=== PATIENT | female | born 1985 | race Caucasian/White ===

== ENCOUNTER 2016-10-24 21:31 | Emergency (ER) | payer SELFPAY ==
[~2016-10-24] VITALS: Ht 162.6 cm; Wt 66.2 kg
--- NOTE | ~2016-10-24 | CR63 ---
[facility]. [facility] A Service of [facility] & [facility] RADIOLOGY TEXT RESULTS PATIENT: CELENA CHAIREZ LOCATION: SED : 81 UNIT #: [id number] AGE: [address]: CORBY LAWLER SEX: F ORDER DR: [id number] [place] [id number] E MR#: [id number] Acc #: [id number] NAME: CELENA CHAIREZ. : 1985 SEX: F STUDY DATE/TIME: 10/24/2016 23:05 UNIT: SED ROOM: STUDY DESCRIPTION: CR Chest 2 View Attending Physician: Corby Lawler R.N. Ordering Physician: Corby Lawler R.N. Primary Care Physician: No Primary Care Physician MEDICAL IMAGING REPORT This report is preliminary unless electronic signature is present. EXAM Two-view chest. INDICATIONS Cough for the past week. PROCEDURE Frontal and lateral views of the chest. COMPARISON None. FINDINGS Heart size is normal. No dense consolidation, pleural fluid or pneumothorax. IMPRESSION No active process. Dictated by... Trav Sam M.D. THIS IS AN ELECTRONICALLY VERIFIED REPORT Trav Sam M.D. at 10/25/2016 9:55 PM EED/felipe TD: 10/25/2016 09:52 JOB #: [id number] MEDICAL IMAGING REPORT Page 1 of 1
[~2016-10-24 21:31] MED LIST: FLEXERIL10 M1 PO; VICODIN 5/1 TAB 5/50 PO
== END 2016-10-24 23:55 | disposition home or self-care (01) ==
LOC: SED 21:31
DX: J30.2 Other seasonal allergic rhinitis (principal); J06.9 Acute upper respiratory infection, unspecified
CPT/HCPCS: 71020; 84703; 87651; 94640; 99283